=== PATIENT | female | born 1995 | race Caucasian/White ===

== ENCOUNTER → 2023-07-15 08:37 | Outpatient (CLI) | payer OTHER, SELFPAY ==
--- NOTE | 2023-07-15 08:39 | DI.RAD.S_ITS ---
PROCEDURE: XR HAND LT MIN 3V INDICATIONS: hx enchondroma; recurrent left finger pain TECHNIQUE: 3 views of the hand(s) acquired. COMPARISON: None. FINDINGS: Bones: No fractures or dislocations. Carpal bones are normally aligned. There is a lucent lesion with a narrow zone of transition at the radial base of the 2nd proximal phalanx measuring 1.0 cm. Soft tissues: No suspicious soft tissue calcifications. IMPRESSION: 1.0 cm lucent lesion with narrow zone of transition at radial base of 2nd proximal phalanx without aggressive features. Finding likely corresponds to enchondroma as provided in clinical history. No comparisons are available for review at time of dictation. Additional differential diagnostic considerations include eosinophilic granuloma and fibrous dysplasia. Recommend continued radiographic follow-up. No acute osseous abnormality. Approved by: Geraldine Riggs M.D. on 07/15/2023 at 11:03
== END ==
PROVIDERS: PCP Family Medicine; Referring Provider Family Medicine; Visit Provider Family Medicine
DX: D16.10 Benign neoplasm of short bones of unspecified upper limb (principal); M79.645 Pain in left finger(s); M89.9 Disorder of bone, unspecified
CPT/HCPCS: 73130

== ENCOUNTER → 2023-09-12 10:06 | Outpatient (CLI) | payer OTHER, SELFPAY ==
--- NOTE | 2023-09-12 10:07 | DI.RAD.S_ITS ---
PROCEDURE: XR ANKLE LT MIN 3V INDICATIONS: L ankle pain TECHNIQUE: 3 views of the ankle were acquired. COMPARISON: None. FINDINGS: Bones: No fractures or dislocations. Ankle mortise is normally aligned. No suspicious bony lesions. The talar dome demonstrates no ovi abnormality. Soft tissues: No tibiotalar joint effusion. Achilles tendon appears normal. IMPRESSION: Normal ankle plain films. If it would be helpful for clinical management decision making, please consider a dedicated, scheduled ankle MRI for further evaluation (assuming that there is no contraindication). Dictated by: Edgar Don M.D. on 09/12/2023 at 9:21 Approved by: Edgar Don M.D. on 09/12/2023 at 9:21
== END ==
PROVIDERS: PCP Family Medicine; Referring Provider Physician Assistant Medical; Visit Provider Physician Assistant Medical
DX: M25.572 Pain in left ankle and joints of left foot (principal)
CPT/HCPCS: 73610

== ENCOUNTER → 2024-05-24 15:03 | Outpatient (CLI) | payer OTHER, SELFPAY | LOC: LAB 15:04 | PROVIDERS: PCP Family Medicine; Referring Provider Family Medicine; Visit Provider Family Medicine | DX: G89.29 Other chronic pain (principal); M79.7 Fibromyalgia; Z82.69 Family history of other diseases of the musculoskeletal system and connective tissue; M99.09 Segmental and somatic dysfunction of abdomen and other regions; M99.01 Segmental and somatic dysfunction of cervical region; M99.06 Segmental and somatic dysfunction of lower extremity; M99.05 Segmental and somatic dysfunction of pelvic region; M99.08 Segmental and somatic dysfunction of rib cage; M99.04 Segmental and somatic dysfunction of sacral region; M99.02 Segmental and somatic dysfunction of thoracic region; M99.07 Segmental and somatic dysfunction of upper extremity | CPT/HCPCS: 36415; 81374 ==